=== PATIENT | male | born 1935 | race Caucasian/White ===

== ENCOUNTER 2018-07-14 17:41 | Inpatient (IN) ==
--- NOTE | 2018-07-14 20:49 | Emergency Department Note ---
Disposition Clinical Impression: Atrial fibrillation with RVR, ELENA (acute kidney injury) CHF exacerbation Qualifiers: Heart failure type: systolic Qualified Code(s): I50.23 - Acute on chronic systolic (congestive) heart failure Disposition: Admitted As Inpatient Condition: Undetermined Time of Disposition: 23:00 General Adult HPI - General Chief complaint: ED Recheck/Abnormal Lab/Rx Stated complaint: Abnormal Labs Time Seen by Provider: 07/14/18 20:20 - History of Present Illness Pain Scale: 0 - Related Data Home Medications Medication Instructions Recorded Confirmed Atorvastatin [Lipitor] 10 mg PO HS 03/19/18 03/19/18 Hydrochlorothiazide [Microzide] 12.5 mg PO DAILY 03/19/18 03/19/18 Lactobacillus Acidophilus 1 cap PO BID 03/19/18 03/19/18 [Acidophilus] Levothyroxine Sodium 75 mcg PO DAILY 03/19/18 03/19/18 Lisinopril [Zestril] 20 mg PO BID 03/19/18 03/19/18 Metformin HCl 1,000 mg PO WD 03/19/18 03/19/18 Metformin HCl 500 mg PO QAM 03/19/18 03/19/18 Oxybutynin [Ditropan] 2.5 mg PO BID 03/19/18 03/19/18 Pantoprazole Sodium [Protonix] 40 mg PO DAILY 03/19/18 03/19/18 Previous Rx's Medication Instructions Recorded Apixaban [Eliquis] 5 mg PO BID #60 tablet 03/20/18 Aspirin Enteric Coated [Aspirin EC] 81 mg PO DAILY #30 tablet.dr 03/20/18 Diltiazem CD (24hr) [Cardizem CD] 120 mg PO DAILY #30 cap.er.24h 03/20/18 Finasteride [Proscar] 5 mg PO DAILY #30 tablet 03/20/18 Allergies Allergy/AdvReac Type Severity Reaction Status Date / Time Sulfa (Sulfonamide AdvReac Rash Verified 07/14/18 17:42 Antibiotics) Past Medical History - Past Medical History Medical history: Reports: diabetes, thyroid disease Surgical history: Reports: orthopedic, other Psychiatric history: Reports: no psych history - Social History Smoking Status: Never smoker Smokeless Tobacco Status: No Alcohol use: Reports: none Drug use: Reports: none Course Vital Signs Temperature 97.7 F 07/14/18 17:42 Pulse Rate 79 07/14/18 17:42 Respiratory Rate 18 07/14/18 17:42 Blood Pressure 127/68 07/14/18 17:42 O2 Sat by Pulse Oximetry 96 07/14/18 17:42 Temperature 97.7 F 07/14/18 17:42 Pulse Rate 79 07/14/18 17:42 Respiratory Rate 18 07/14/18 17:42 Blood Pressure 127/68 07/14/18 17:42 O2 Sat by Pulse Oximetry 96 07/14/18 17:42 Oxygen Delivery Oxygen Delivery Room Air Medical Decision Making - Lab Data Result diagrams: 07/14/18 20:54 Lab Results 07/14/18 07/14/18 Range/Units 20:54 20:54 Sodium 136 (136-145) mEq/L Potassium 4.5 (3.5-5.1) mEq/L Chloride 102 (98-107) mEq/L Carbon Dioxide 23 (23-29) mEq/L BUN 30 H (8-23) mg/dL Creatinine 2.10 H (0.70-1.30) mg/dL Est GFR ( Amer) 37 L (> 60) Est GFR (Non-Af Amer) 31 L (> 60) BUN/Creatinine Ratio 14 (6-26) Glucose 137 H (70-105) mg/dL Calculated Osmolality 290 (280-300) Calcium 8.8 (8.6-10.3) mg/dL Troponin I < 0.03 (< 0.04) ng/mL B-Natriuretic Peptide 834 H (Less than 100) pg/mL Attestation Statement - Attestation Attestation: I examined this patient and my medical decision-making was reviewed with the Resident Physician. I agree with the documented findings, disposition and treatment plan as described except to the extent set forth below. Patient resisted ED with an abnormal lab. Patient states his primary care doctor's office called him and told him to come to the ED immediately. Patient does not know was abnormal. States he feels fine. On exam he is in no acute distress. Heart regular rate and rhythm lungs are clear abdomen soft. His awake alert oriented moving all extremities. Observed ambulating without difficulty. Plan. Labs reviewed. He did have a creatinine of 2. He has no symptoms of urinary obstruction. No pain. No dyspnea. He is having some swelling in his legs. CHF workup. We will discuss with nephrology. Nephrology was consulted. Patient admitted to medicine. EKG was reviewed with the resident. Paramjit sutton with RVR.
--- NOTE | 2018-07-14 20:54 | Emergency Department Note ---
Disposition Clinical Impression: Atrial fibrillation with RVR, ELENA (acute kidney injury) CHF exacerbation Qualifiers: Heart failure type: systolic Qualified Code(s): I50.23 - Acute on chronic systolic (congestive) heart failure Disposition: Admitted As Inpatient Condition: Undetermined Time of Disposition: 23:10 Recheck wound or abnormal lab - General Chief Complaint: ED Recheck/Abnormal Lab/Rx Stated Complaint: Abnormal Labs Time Seen by Provider: 07/14/18 20:20 Source: patient Mode of arrival: ambulatory Limitations: no limitations Nursing Notes Reviewed: Yes Vital Signs Reviewed: Yes - History of Present Illness HPI Narrative: 82-year-old male with history of atrial fibrillation, arrives to the emergency department with abnormal labs sent by PCP. It appears the patient was sent to the emergency department for elevated creatinine and low GFR. This appears new compared to previous lab work. However, we are unable to determine exactly why the patient was sent here as we received no phone call from PCP and the patient is unaware. He is apparently just instructed to come to the emergency dep artment to be evaluated. The patient denies any complaints other than a bilateral lower extremity swelling. He denies any chest pain, shortness of breath or orthopnea. The patient is feeding. This is in the room however he does seem to be mildly tangential on conversation and his family states that he is not been quite acting himself ever since he was diagnosed with atrial fibrillation. The patient otherwise is lucid and answering questions appropriately. He denies any other specific complaints at this time. - Related Data Home Medications Medication Instructions Recorded Confirmed Atorvastatin [Lipitor] 10 mg PO HS 03/19/18 03/19/18 Hydrochlorothiazide [Microzide] 12.5 mg PO DAILY 03/19/18 03/19/18 Lactobacillus Acidophilus 1 cap PO BID 03/19/18 03/19/18 [Acidophilus] Levothyroxine Sodium 75 mcg PO DAILY 03/19/18 03/19/18 Lisinopril [Zestril] 20 mg PO BID 03/19/18 03/19/18 Metformin HCl 1,000 mg PO WD 03/19/18 03/19/18 Metformin HCl 500 mg PO QAM 03/19/18 03/19/18 Oxybutynin [Ditropan] 2.5 mg PO BID 03/19/18 03/19/18 Pantoprazole Sodium [Protonix] 40 mg PO DAILY 03/19/18 03/19/18 Previous Rx's Medication Instructions Recorded Apixaban [Eliquis] 5 mg PO BID #60 tablet 03/20/18 Aspirin Enteric Coated [Aspirin EC] 81 mg PO DAILY #30 tablet. 03/20/18 Diltiazem CD (24hr) [Cardizem CD] 120 mg PO DAILY #30 cap.er.24h 03/20/18 Finasteride [Proscar] 5 mg PO DAILY #30 tablet 03/20/18 Allergies Allergy/AdvReac Type Severity Reaction Status Date / Time Sulfa (Sulfonamide AdvReac Rash Verified 07/14/18 17:42 Antibiotics) All systems ED: reviewed and negative except as stated. Constitutional: Denies: fever, chills, weakness ENT ED: Denies: dysphagia Cardiovascular: Reports: edema. Denies: chest pain Respiratory: Denies: dyspnea Gastrointestinal: Denies: abdominal pain Genitourinary: Denies: urgency, dysuria Musculoskeletal: Denies: back pain Integumentary: Denies: rash Neurological: Denies: headache Past Medical History - Past Medical History Attestation: Yes The following information was validated with the patient. Source: patient, old records reviewed Medical history: Reports: atrial fibrillation, diabetes, hypertension, thyroid disease Surgical history: Reports: orthopedic, other Psychiatric history: Reports: no psych history - Social History Smoking Status: Never smoker Smokeless Tobacco Status: No Alcohol use: Reports: none Drug use: Reports: none Physical Exam - General Limitations: no limitations General appearance: alert, in no apparent distress - Head Head exam: atraumatic, normocephalic, normal inspection - Eye Eye exam: Present: normal appearance, PERRL, EOMI - ENT ENT exam: normal exam, normal oropharynx, mucous membranes moist - Neck Neck exam: Present: normal inspection, full ROM, trachea midline - Chest Chest inspection: Present: normal inspection, symmetric chest wall rise - Respiratory Respiratory exam: Present: normal lung sounds bilaterally - Cardiovascular Cardiovascular exam: Present: regular rate, normal rhythm, normal heart sounds - Abdominal Exam Abdominal exam: Present: soft, Non-Tender. Absent: tenderness, distention, guarding, rebound, rigidity - Extremities Exam Extremities exam: Present: full ROM, normal capillary refill, pedal edema (2+ pitting B/L). Absent: tenderness - Neurological Exam Neurological exam: Present: alert, oriented X3 - Skin Skin exam: Present: warm, dry, intact, normal color Course - Reevaluation(s) Reevaluation #1: Patient's workup here in the ED demonstrates an acute kidney injury. This appears new on evaluation. The patient did have an elevated creatinine previously. We will page nephrology at this time. In addition the patient's chest x-ray demonstrates bilateral pleural effusions. His BNP is elevated 874. The patient's heart rate was initially in the 70s and then has elevated up to the 120s but on continued evaluation he is anywhere between the low 90s to 110. He is tearful in the room on evaluation. The patient is currently on anticoagulation, Eliquis. He is taking all his medications as prescribed. We will consult nephrology at this time for further workup and care with likely disposition being admission. Time: 21:42 - Consultations Consultation #1: I spoke with Dr. Perez who requested with U/A and Urine Na. Time: 22:47 Vital Signs Temperature 97.7 F 07/14/18 17:42 Pulse Rate 79 07/14/18 17:42 Respiratory Rate 18 07/14/18 17:42 Blood Pressure 127/68 07/14/18 17:42 O2 Sat by Pulse Oximetry 96 07/14/18 17:42 Temperature 97.7 F 07/14/18 17:42 Pulse Rate 79 07/14/18 17:42 Respiratory Rate 18 07/14/18 17:42 Blood Pressure 127/68 07/14/18 17:42 O2 Sat by Pulse Oximetry 96 07/14/18 17:42 Oxygen Delivery Oxygen Delivery Room Air Recheck wound or abnormal lab - MDM Narrative Medical decision making narrative: Patient will be admitted to the hospital at this time. The patient was given Cardizem by mouth. In addition the patient case was discussed with on-call nephrology. Accepted to the hospitalist by Dr. Mir. - Medical Records Medical records reviewed: Yes I reviewed the patient's medical records. - Lab Data Lab results reviewed: Yes I reviewed the patient's lab results. Result diagrams: 07/14/18 20:54 Lab Results 07/14/18 07/14/18 Range/Units 20:54 20:54 Sodium 136 (136-145) mEq/L Potassium 4.5 (3.5-5.1) mEq/L Chloride 102 (98-107) mEq/L Carbon Dioxide 23 (23-29) mEq/L BUN 30 H (8-23) mg/dL Creatinine 2.10 H (0.70-1.30) mg/dL Est GFR ( Amer) 37 L (> 60) Est GFR (Non-Af Amer) 31 L (> 60) BUN/Creatinine Ratio 14 (6-26) Glucose 137 H (70-105) mg/dL Calculated Osmolality 290 (280-300) Calcium 8.8 (8.6-10.3) mg/dL Troponin I < 0.03 (< 0.04) ng/mL B-Natriuretic Peptide 834 H (Less than 100) pg/mL - Radiology Data Radiology results reviewed: Yes I reviewed the patient's radiology results. Chest X-Ray 07/14/18 20:37 IMPRESSION: 1. Findings most compatible with small bilateral pleural effusions with associated atelectasis, right greater than left. D/ / Chinmay Bowens MD / Chinmay Bowens MD Interpreting Provider: Chinmay Bowens MD - EKG Data EKG attestation: Yes I reviewed and interpreted this EKG. EKG results narrative: Re: 129 beats for minute. Atrial fibrillation with RVR. No ST elevation or ST depression noted. No acute changes noted.
[2018-07-14 21:34] LABS: BUN/Creatinine Ratio 14 (6-26); Blood Urea Nitrogen 30 mg/dL (8-23); Calcium 8.8 mg/dL (8.6-10.3); Carbon Dioxide 23 mEq/L (23-29); Chloride 102 mEq/L (98-107); Glucose 137 mg/dL (70-105); Osmolality,Calculated 290 (280-300); Potassium 4.5 mEq/L (3.5-5.1); Sodium 136 mEq/L (136-145); eGFR For African Americans 37 (> 60); eGFR For Non-African Americans 31 (> 60)
[2018-07-14 21:35] LABS: Troponin I < 0.03 ng/mL (< 0.04)
[2018-07-14] MEDS ORDERED: Furosemide 40 MG/4 ML VIAL IVP ONE ×2 (23:19→23:28)
[2018-07-14] MEDS ORDERED: *HR* Dextrose 50 % in Water (Syg) 50 ML SYRINGE IVP PRN (23:20)
[2018-07-14] MEDS ORDERED: Dextrose Gel 15 GM/37.5 ML TUBE PO PRN ×2 (23:20)
--- NOTE | 2018-07-14 23:51 | Internal Med History&Physical ---
Date of Encounter: 07/14/18 Time of Encounter: 23:50 Internal Medicine - H&P: HPI Chief complaint: abnormal labs Admitted From: Home Plans for Post Hospital Care: Home History of present illness: Andrei Degroot is an 82 year old man with hypertension, hyperlipdeimia, diabetes and diagnosed with atrial fibrillation 4 months ago but subsequently developed hematuria while on apixaban. He presents to the ER today upon request of his PCP who found on an elevation in his creatinine on routine labs this morning. He reports feeling well and has no complaints. Repeat lab work confirmed his creatinine to be 2.1 up from 1.3 a few months ago. He was also found to have peripheral edema on physical exam and a newly developed pleural effusion on x-ray. Telemetry demonstrated afib with RVR. He is admitted for further care. Vitals: Reviewed General: Well-appearing male who appears younger than stated age sitting up in bed in no acute distress. Skin: Warm and supple. HEENT: Moist mucous membranes. No conjunctivae pallor. Neck: No lymphadenopathy. No JVD. No carotid bruits. No palpable thyroid. Chest: Normal thoracic expansion. Reduced breath sounds in both lung bases. No wheezing or rhonchi. Heart: Irregularly irregular. No rubs or murmurs. Abdomen: Non-distended, soft and non-tender to palpation. No peritoneal reaction. Extremities: 2-3+ pitting edema of both lower legs with the right leg circu mferentially larger than the left but nontender to palpation and no inflammatory signs present. Neurological: Awake, alert and oriented to person, place and time. No focal deficits. Psych: Affect appropriate. Assessment/Plan 1. Fluid overload: As evidenced by peripheral edema and pleural effusions. Suspect secondary to a functional heart failure state in the setting of atrial fibrillation. Stress test done recently showed no evidence of ischemia and his EF was grossly adequate. Will give him a dose of IVP furosemide tonight as a trial. I have taken note of his sulfa allergy. While there is a theoretical concern for a cross-reactive allergic reaction, it is minimal in clinical practice. Ethacrynic acid is not available here. All the same I will be present when infused and given only slowly with diphenhydramine/steroids ordered at bedside if he indeed is to develop a reaction. Will also get a Doppler of his right leg that is notably larger than the left to r/o DVT. 2. Atrial fibrillation: Will resume rate control agents and confirm anticoagulation status. 3. Acute on chronic kidney injury: Suspect secondary to poor effective volemia from functional heart failure and fluid sequestration. Will assess response to diuresis. It will be stopped if it worsens significantly or try albumin. 4. Diabetes: Place on insulin sliding scale as metformin should be on hold given his ELENA. Past Med Surg Social Fam HX - Past Medical History Medical history: atrial fibrillation, diabetes, hypertension, thyroid disease Psychiatric history: no psych history - Past Surgical History Surgical History: orthopedic, other - Social History Smoking Status: Never smoker Smokeless Tobacco Status: No Alcohol use: none Drug use: none - Family History Father Hx Family Cardiac Disorders: No Hx Family Cancer: Yes Mother Hx Family Cardiac Disorders: No Internal Medicine - H&P: Meds Atorvastatin [Lipitor] 10 mg PO HS 03/19/18 [History] Hydrochlorothiazide [Microzide] 12.5 mg PO DAILY 03/19/18 [History] Lactobacillus Acidophilus [Acidophilus] 1 cap PO BID 03/19/18 [History] Levothyroxine Sodium 75 mcg PO DAILY 03/19/18 [History] Lisinopril [Zestril] 20 mg PO BID 03/19/18 [History] Metformin HCl 1,000 mg PO WD 03/19/18 [History] Metformin HCl 500 mg PO QAM 03/19/18 [History] Oxybutynin [Ditropan] 2.5 mg PO BID 03/19/18 [History] Pantoprazole Sodium [Protonix] 40 mg PO DAILY 03/19/18 [History] Apixaban [Eliquis] 5 mg PO BID #60 tablet 03/20/18 [Rx] Aspirin Enteric Coated [Aspirin EC] 81 mg PO DAILY #30 tablet.dr 03/20/18 [Rx] Diltiazem CD (24hr) [Cardizem CD] 120 mg PO DAILY #30 cap.er.24h 03/20/18 [Rx] Finasteride [Proscar] 5 mg PO DAILY #30 tablet 03/20/18 [Rx] Allergy/AdvReac Type Severity Reaction Status Date / Time Sulfa (Sulfonamide AdvReac Rash Verified 07/14/18 17:42 Antibiotics) All Systems PM: A 10-system review of systems was performed and is negative for pertinent findings except as documented above in the HPI. - Constitutional Vitals: Temp Pulse Resp BP Pulse Ox 97.7 F 79 16 111/89 96 07/14/18 21:41 07/14/18 21:41 07/14/18 23:40 07/14/18 23:40 07/14/18 21:41 Exam: . Internal Med - H&P Results - Labs CBC & Chem 7: 07/14/18 20:54 Labs: BMP 07/14/18 20:54 Sodium 136 Potassium 4.5 Chloride 102 Carbon Dioxide 23 BUN 30 H Creatinine 2.10 H Glucose 137 H Calcium 8.8 Cardiac Enzymes 07/14/18 Range/Units 20:54 Troponin I < 0.03 (< 0.04) ng/mL - Impressions ITS Impressions Chest X-Ray 07/14/18 20:37 IMPRESSION: 1. Findings most compatible with small bilateral pleural effusions with associated atelectasis, right greater than left. D/ / Chinmay Bowens MD / Chinmay Bowens MD Interpreting Provider: Chinmay Bowens MD - Time Spent With Patient Total time spent is greater than 50% in coordination of care (as documented) at patient's floor/unit and/or counseling patient: Greater than 35 minutes
[2018-07-15 04:54] LABS: Bilirubin,Urine Negative (Negative); Blood,Urine Large (Negative); Clarity,Urine Cloudy (Clear); Color,Urine Yellow (Yellow); Glucose,Urine (UA) Normal (Normal); Ketones,Urine Negative (Negative); Leukocyte Esterase,Urine Large (Negative); Nitrite,Urine Negative (Negative); Protein,Urine 100 mg/dL (Neg-Trace); Specific Gravity,Urine 1.007 (1.010-1.025); Urobilinogen,Urine Normal (Normal)
[2018-07-15 04:56] LABS: Hyaline Casts,Urine None Seen per lpf (None-Few); Squamous Epithelial Cell,Urine None Seen per lpf (None-Few); WBC,Urine TNTC per hpf (0-3)
[2018-07-15 05:14] LABS: Bacteria,Urine Few per hpf (None-Few)
[2018-07-15] MEDS ORDERED: *HR* Metoprolol 5 MG/5 ML VIAL IVP ONE (05:42)
[2018-07-15 07:06] LABS: Basophils % 0.3 %; Eosinophils # 0.1 K/mcL (0.0-0.6); Eosinophils % 0.8 %; Hematocrit 30.8 % (37.5-50.1); Hemoglobin 9.8 g/dL (12.9-16.9); Immature Granulocytes % 0.5 % (0-4); Lymphocytes # 1.1 K/mcL (0.6-4.6); Lymphocytes % 14.2 %; Mean Corpuscular HGB Conc 31.8 g/dL (31.6-35.5); Mean Corpuscular Hemoglobin 28.7 pg (28.0-33.3); Mean Corpuscular Volume 90.3 fL (83.0-100.0); Mean Platelet Volume 11.3 fL (9.4-12.4); Monocytes # 0.5 K/mcL (0.0-1.3); Monocytes % 6.6 %; Neutrophils # 5.8 K/mcL (1.6-8.9); Platelet Count 213 K/mcL (140-400); Red Blood Count 3.41 M/mcL (4.19-5.50); Red Cell Distribution Width 15.2 % (11.5-14.5); Segmented Neutrophils % 77.6 %; White Blood Count 7.5 K/mcL (4.3-11.1)
[2018-07-15 07:15] LABS: Prothrombin Time 22.7 Seconds (9.4-12.1)
[2018-07-15 07:17] LABS: Activated Partial Thrombo Time 37.4 Seconds (26.0-36.0)
[2018-07-15 07:22] LABS: Heparin anti-factor XA UFH > 2.00 IU/mL (0.30-0.70)
[2018-07-15 07:25] LABS: Calcium 8.8 mg/dL (8.6-10.3); Potassium 4.3 mEq/L (3.5-5.1)
--- NOTE | 2018-07-15 07:55 | Internal Med Progress Note ---
Hospitalist Progress Note - Encounter Date of Encounter: 07/15/18 Time of Encounter: 07:00 - Subjective Interval History: No acute events overnight - Exam Vitals: Temp Pulse Resp BP Pulse Ox 98.0 F 99 16 112/72 96 07/15/18 07:46 07/15/18 07:46 07/15/18 07:46 07/15/18 07:46 07/15/18 07:46 Exam: General appearance: Present: A&O X 3, no acute distress Head exam: Present: normocephalic Respiratory exam: Present: CTAB. Absent: accessory muscle use, rales, rhonchi, wheezes Cardiovascular exam: Present: RRR, +S1, +S2. Absent: diastolic murmur, gallop, rubs, systolic murmur GI/Abdominal exam: Soft, NT, ND, +BS Extremities exam: bilateral edema Neurological exam: Present: alert, oriented X3, no focal deficits. Absent: altered - Assessment and Plan (1) CHF exacerbation Current Visit: Yes Status: Acute Assessment and Plan: Pt has acute worsening of chronic diastolic CHF On lasix BID. Monitor ins and outs. Cardiac diet Doppler of roght lower extremity to r/o DVT due to asymmetric lower extremity enlargement (2) Atrial fibrillation Current Visit: Yes Status: Acute Assessment and Plan: Continue diltiazem and eliquis (3) Diabetes Current Visit: Yes Status: Chronic Assessment and Plan: On insulin. Monitor fingersticks (4) ELENA (acute kidney injury) Current Visit: Yes Status: Acute Assessment and Plan: Monitor creatinine with diuresis (5) DVT prophylaxis Current Visit: Yes Status: Acute Assessment and Plan: On eliquis - Time Spent with Patient Total time spent is greater than 50% in coordination of care (as documented) at patient's floor/unit and/or counseling patient: Internal Medicine: Result - Labs CBC & Chem 7: 07/15/18 06:39 07/15/18 06:39 Labs: Short CBC 07/15/18 Range/Units 06:39 WBC 7.5 (4.3-11.1) K/mcL Hgb 9.8 L (12.9-16.9) g/dL Hct 30.8 L (37.5-50.1) % Plt Count 213 (140-400) K/mcL Neutrophils # 5.8 (1.6-8.9) K/mcL BMP 07/14/18 07/15/18 20:54 06:39 Sodium 136 139 Potassium 4.5 4.3 Chloride 102 102 Carbon Dioxide 23 23 BUN 30 H 30 H Creatinine 2.10 H 2.19 H Glucose 137 H 128 H Calcium 8.8 8.8 Cardiac Enzymes 07/14/18 Range/Units 20:54 Troponin I < 0.03 (< 0.04) ng/mL Urine 07/15/18 Range/Units 02:50 Urine Color Yellow (Yellow) Urine Clarity Cloudy A (Clear) Urine pH 6.0 (5.0-8.0) pH Units Ur Specific [place] 1.007 L (1.010-1.025) Urine Protein 100 H (Neg-Trace) mg/dL Urine Glucose (UA) Normal (Normal) mg/dL - ABG Interpretation ABG results: PT/INR, D-dimer PT 22.7 Seconds (9.4-12.1) H 07/15/18 06:39 - Impressions Impressions Chest X-Ray 07/14/18 20:37 IMPRESSION: 1. Findings most compatible with small bilateral pleural effusions with associated atelectasis, right greater than left. D/ / Chinmay Bowens MD / Chinmay Bowens MD Interpreting Provider: Chinmay Bowens MD Consult Discharge Plan - Plan Referrals: Mariaelena Canela, DO [Primary Care Provider] - (1) CHF exacerbation Qualifiers: Heart failure type: systolic Qualified Code(s): I50.23 - Acute on chronic systolic (congestive) heart failure (3) Diabetes Qualifiers: Diabetes mellitus type: type 2 Diabetes mellitus exterminator termite insulin use: without snf use Diabetes mellitus complication status: with unspecified complications
[2018-07-15] MEDS: Insulin LISPRO 300 UNITS/3 ML VIAL SQ SCH ×4 (08:21→23:31)
[2018-07-15] MEDS ORDERED: Furosemide 20 MG/2 ML VIAL IVP SCH (09:00)
[2018-07-15] MEDS ORDERED: Diltiazem CD (24hr) 120 MG CAPSULE PO SCH (09:00)
--- NOTE | 2018-07-15 13:27 | Electrocardiograph Report ---
[place] [id number] Test Date: 2018-07-14 Pat Name: Andrei Degroot Department: [id number] Room: 2A24 Gender: M System Architect: : [id number] Requested By: Gunnar Hopkins Order Number: [id number] Reading MD: Neptali Bullard Measurements Intervals [place] Rate: 129 P: ID: QRS: -25 QRSD: 85 T: QT: 368 QTc: 540 Interpretive Statements Atrial fibrillation Borderline left axis deviation Low voltage, extremity leads Anteroseptal infarct, old Borderline repolarization abnormality Electronically Signed On 07-15-2018 13:25:54 EDT by Neptali Bullard
[2018-07-15] MEDS ORDERED: *HR* Heparin 5,000 UNIT/ML VIAL SQ SCH (14:00)
[2018-07-15] MEDS ORDERED: 0.9 % Sodium Chloride 500 ML ONE (22:02)
[2018-07-15] MEDS: Furosemide 40 MG/4 ML VIAL IVP SCH (22:10)
[2018-07-15] MEDS: Apixaban 5 MG TABLET PO SCH (22:10)
--- NOTE | 2018-07-16 07:52 | Internal Med Progress Note ---
Hospitalist Progress Note - Encounter Date of Encounter: 07/16/18 Time of Encounter: 07:45 - Subjective Interval History: No acute events overnight - Exam Vitals: Temp Pulse Resp BP Pulse Ox 97.9 F 119 18 118/65 95 07/16/18 03:53 07/16/18 03:53 07/16/18 03:53 07/16/18 04:45 07/16/18 03:53 Exam: General appearance: Present: A&O X 3, no acute distress Head exam: Present: normocephalic Respiratory exam: Present: CTAB. Absent: accessory muscle use, rales, rhonchi, wheezes Cardiovascular exam: Present: RRR, +S1, +S2. Absent: diastolic murmur, gallop, rubs, systolic murmur GI/Abdominal exam: Soft, NT, ND, +BS Extremities exam: bilateral edema Neurological exam: Present: alert, oriented X3, no focal deficits. Absent: altered - Assessment and Plan (1) CHF exacerbation Current Visit: Yes Status: Acute Assessment and Plan: Pt has acute worsening of chronic diastolic CHF On lasix BID. Monitor ins and outs. Cardiac diet Doppler of roght lower extremity to r/o DVT due to asymmetric lower extremity enlargement (2) Atrial fibrillation Current Visit: Yes Status: Acute Assessment and Plan: Continue diltiazem and eliquis (3) Diabetes Current Visit: Yes Status: Chronic Assessment and Plan: On insulin. Monitor fingersticks (4) ELENA (acute kidney injury) Current Visit: Yes Status: Acute Assessment and Plan: Monitor creatinine with diuresis (5) DVT prophylaxis Current Visit: Yes Status: Acute Assessment and Plan: On eliquis - Time Spent with Patient Total time spent is greater than 50% in coordination of care (as documented) at patient's floor/unit and/or counseling patient: Internal Medicine: Result - Labs CBC & Chem 7: 07/16/18 09:39 07/16/18 09:39 - ABG Interpretation ABG results: PT/INR, D-dimer PT 22.7 Seconds (9.4-12.1) H 07/15/18 06:39 Consult Discharge Plan - Plan Referrals: Mariaelena Canela DO [Primary Care Provider] - (1) CHF exacerbation Qualifiers: Heart failure type: systolic Qualified Code(s): I50.23 - Acute on chronic sys tolic (congestive) heart failure (2) Atrial fibrillation Qualifiers: Qualified Code(s): I48.91 - Unspecified atrial fibrillation (3) Diabetes Qualifiers: Diabetes mellitus type: type 2 Diabetes mellitus fdc insulin use: without fdc use Diabetes mellitus complication status: with unspecified complications
[2018-07-16] MEDS: Apixaban 5 MG TABLET PO SCH ×2 (08:06→22:02)
[2018-07-16] MEDS: Mirabegron [Myrbetriq] 50 MG PO SCH (08:06)
[2018-07-16] MEDS: Finasteride 5 MG TABLET PO SCH (08:06)
[2018-07-16] MEDS: Furosemide 40 MG/4 ML VIAL IVP SCH ×2 (08:06→22:02)
[2018-07-16] MEDS: Insulin LISPRO 300 UNITS/3 ML VIAL SQ SCH ×4 (08:20→22:03)
[2018-07-16 10:22] LABS: Basophils % 0.3 %; Eosinophils # 0.1 K/mcL (0.0-0.6); Eosinophils % 0.8 %; Hematocrit 29.7 % (37.5-50.1); Hemoglobin 9.5 g/dL (12.9-16.9); Immature Granulocytes % 0.3 % (0-4); Lymphocytes % 13.3 %; Mean Corpuscular Hemoglobin 28.9 pg (28.0-33.3); Mean Corpuscular Volume 90.3 fL (83.0-100.0); Mean Platelet Volume 11.6 fL (9.4-12.4); Monocytes # 0.5 K/mcL (0.0-1.3); Monocytes % 6.8 %; Neutrophils # 5.8 K/mcL (1.6-8.9); Platelet Count 228 K/mcL (140-400); Red Blood Count 3.29 M/mcL (4.19-5.50); Red Cell Distribution Width 15.3 % (11.5-14.5); Segmented Neutrophils % 78.5 %; White Blood Count 7.4 K/mcL (4.3-11.1)
[2018-07-16 10:39] LABS: Calcium 8.4 mg/dL (8.6-10.3); Phosphorous 4.2 mg/dL (2.7-4.5); Potassium 4.1 mEq/L (3.5-5.1)
[2018-07-16] MEDS: Diltiazem CD (24hr) 180 MG CAPSULE PO SCH (10:54)
[2018-07-16] MEDS ORDERED: Albumin 25% 25gram/100mL 25 GM/100 ML IV.SOLN IVC SCH (14:30)
[2018-07-16] MEDS ORDERED: *HR* Metoprolol 5 MG/5 ML VIAL IVP ONE (14:39)
[2018-07-16] MEDS ORDERED: Albumin 25% 25gram/100mL 25 GM/100 ML IV.SOLN IVPB ONE (14:57)
[2018-07-16] MEDS ORDERED: Furosemide 20 MG/2 ML VIAL IVP ONE (17:03)
--- NOTE | 2018-07-17 07:36 | Internal Med Progress Note ---
Hospitalist Progress Note - Encounter Date of Encounter: 07/17/18 Time of Encounter: 07:30 - Subjective Interval History: No acute events overnight - Exam Vitals: Temp Pulse Resp BP Pulse Ox 97.8 F 113 17 98/56 97 07/17/18 03:38 07/17/18 03:38 07/17/18 03:38 07/17/18 03:38 07/17/18 03:38 Exam: General appearance: Present: A&O X 3, no acute distress Head exam: Present: normocephalic Respiratory exam: Present: CTAB. Absent: accessory muscle use, rales, rhonchi, wheezes Cardiovascular exam: Present: RRR, +S1, +S2. Absent: diastolic murmur, gallop, rubs, systolic murmur GI/Abdominal exam: Soft, NT, ND, +BS Extremities exam: bilateral edema Neurological exam: Present: alert, oriented X3, no focal deficits. Absent: altered - Assessment and Plan (1) CHF exacerbation Current Visit: Yes Status: Acute Assessment and Plan: Pt has acute worsening of chronic diastolic CHF On lasix BID. Monitor ins and outs. Cardiac diet Doppler of right lower extremity to r/o DVT was negative (2) ELENA (acute kidney injury) Current Visit: Yes Status: Acute Assessment and Plan: Monitor creatinine with diuresis. Creatinine trended up despite giving albumin Patient still has some edema. renal consulted and appreciate recs (3) Atrial fibrillation Current Visit: Yes Status: Acute Assessment and Plan: Continue diltiazem and eliquis (4) Diabetes Current Visit: Yes Status: Chronic Assessment and Plan: On insulin. Monitor fingersticks (5) DVT prophylaxis Current Visit: Yes Status: Acute Assessment and Plan: On eliquis - Time Spent with Patient Total time spent is greater than 50% in coordination of care (as documented) at patient's floor/unit and/or counseling patient: Internal Medicine: Result - Labs CBC & Chem 7: 07/17/18 09:26 07/17/18 09:26 Labs: Short CBC 07/16/18 Range/Units 09:39 WBC 7.4 (4.3-11.1) K/mcL Hgb 9.5 L (12.9-16.9) g/dL Hct 29.7 L (37.5-50.1) % Plt Count 228 (140-400) K/mcL Neutrophils # 5.8 (1.6-8.9) K/mcL BMP 07/16/18 09:39 Sodium 136 Potassium 4.1 Chloride 101 Carbon Dioxide 24 BUN 34 H Creatinine 2.33 H Glucose 160 H Calcium 8.4 L - ABG Interpretation ABG results: PT/INR, D-dimer PT 22.7 Seconds (9.4-12.1) H 07/15/18 06:39 Consult Discharge Plan - Plan Referrals: Mariaelena Canela DO [Primary Care Provider] - (1) CHF exacerbation Qualifiers: Heart failure type: systolic Qualified Code(s): I50.23 - Acute on chronic systolic (congestive) heart failure (3) Atrial fibrillation Qualifiers: Qualified Code(s): I48.91 - Unspecified atrial fibrillation (4) Diabetes Qualifiers: Diabetes mellitus type: type 2 Diabetes mellitus correction insulin use: without correction use Diabetes mellitus complication status: with unspecified complications
[2018-07-17] MEDS ORDERED: D5% in Water 1,000 ML IVC PRN (07:50)
[2018-07-17] MEDS: Diltiazem CD (24hr) 180 MG CAPSULE PO SCH (08:06)
[2018-07-17] MEDS: Insulin LISPRO 300 UNITS/3 ML VIAL SQ SCH ×4 (08:07→20:45)
[2018-07-17] MEDS: Finasteride 5 MG TABLET PO SCH (08:08)
[2018-07-17] MEDS: Apixaban 5 MG TABLET PO SCH ×2 (09:36→20:40)
[2018-07-17] MEDS: Mirabegron [Myrbetriq] 50 MG PO SCH (09:41)
[2018-07-17 09:50] LABS: White Blood Count 8.8 K/mcL (4.3-11.1)
[2018-07-17 09:51] LABS: Basophils % 0.5 %; Eosinophils # 0.1 K/mcL (0.0-0.6); Eosinophils % 0.6 %; Hematocrit 33.4 % (37.5-50.1); Hemoglobin 10.9 g/dL (12.9-16.9); Immature Granulocytes % 0.3 % (0-4); Lymphocytes # 1.4 K/mcL (0.6-4.6); Lymphocytes % 15.9 %; Mean Corpuscular HGB Conc 32.6 g/dL (31.6-35.5); Mean Corpuscular Hemoglobin 29.5 pg (28.0-33.3); Mean Corpuscular Volume 90.3 fL (83.0-100.0); Mean Platelet Volume 11.4 fL (9.4-12.4); Monocytes # 0.6 K/mcL (0.0-1.3); Neutrophils # 6.7 K/mcL (1.6-8.9); Platelet Count 269 K/mcL (140-400); Red Cell Distribution Width 15.3 % (11.5-14.5); Segmented Neutrophils % 75.7 %
[2018-07-17 10:08] LABS: Calcium 8.7 mg/dL (8.6-10.3); Magnesium 1.1 mg/dL (1.6-2.6); Phosphorous 5.3 mg/dL (2.7-4.5); Potassium 4.4 mEq/L (3.5-5.1)
--- NOTE | 2018-07-17 16:16 | Nephrology Consult Note ---
Date of Encounter: 07/17/18 Time of Encounter: 16:00 Assessment and Plan (1) ELENA (acute kidney injury) Current Visit: Yes Status: Acute Elevated SCr in the setting of CHF and diuretics Agree with holding diuretics for now Agree with albumin bolus given yesterday Agree with holding lisinopril for now Po fluids for now Will check CPK and uric acid levels Will also check urine studies for protein and urea, eosinophils History of Present Illness - Reason for Consult Consult date: 07/17/18 Requesting physician: Prem Borges - History of Present Illness 82 y o male with PMH of Past Med Surg Social Fam HX - Past Medical History Medical history: atrial fibrillation, diabetes, hypertension, thyroid disease Psychiatric history: no psych history - Past Surgical History Surgical History: orthopedic, other - Social History Smoking Status: Never smoker Smokeless Tobacco Status: No Alcohol use: none Drug use: none - Family History Father History Unknown: Yes Hx Family Cardiac Disorders: No Hx Family Cancer: Yes Mother History Unknown: Yes Hx Family Cardiac Disorders: No Medications and Allergies Atorvastatin [Lipitor] 10 mg PO HS 03/19/18 [History] Levothyroxine Sodium 75 mcg PO QAM 03/19/18 [History] Lisinopril [Zestril] 20 mg PO BID 03/19/18 [History] Oxybutynin [Ditropan] 5 mg PO QPM 03/19/18 [History] Pantoprazole Sodium [Protonix] 40 mg PO DAILY 03/19/18 [History] Apixaban [Eliquis] 5 mg PO BID #60 tablet 03/20/18 [Rx] Finasteride [Proscar] 5 mg PO DAILY #30 tablet 03/20/18 [Rx] Diltiazem HCl [Diltiazem 24Hr Cd] 180 mg PO DAILY 07/15/18 [History] Mirabegron [Myrbetriq] 50 mg PO DAILY 07/15/18 [History] Ferrous Gluconate 324 mg PO DAILY 07/17/18 [History] Multivitamin [One Daily Multivitamin] 1 tab PO DAILY 07/17/18 [History] Allergy/AdvReac Type Severity Reaction Status Date / Time Sulfa (Sulfonamide AdvReac Rash Verified 07/16/18 18:22 Antibiotics) Exam - Vital Signs Vital signs: Initial Vital Signs Temp Pulse Resp BP Pulse Ox 97.7 F 79 18 127/68 96 07/14/18 17:42 07/14/18 17:42 07/14/18 17:42 07/14/18 17:42 07/14/18 17:42 Vital Signs - Last 8 Hours Temp Pulse Resp BP Pulse Ox 07/17/18 11:18 97.6 F 92 16 110/76 93 Intake and Output 07/17/18 07/17/18 07/17/18 07:59 15:59 23:59 Intake Total 480 / 480 Balance 480 / 480 Intake: Oral 480 / 480 Other: Blood Glucose* 124 130 Results - Lab Results 07/17/18 09:26 07/17/18 09:26 Most recent lab results 07/17/18 09:26 Calcium 8.7 Phosphorus 5.3 H Magnesium 1.1 L Consult Discharge Plan - Plan Referrals: Mariaelena Canela DO [Primary Care Provider] -
[2018-07-17 16:39] LABS: Uric Acid 10.8 mg/dL (2.3-7.6)
[2018-07-18 00:15] LABS: Protein/Creatinine Ratio,Urine 0.73 mg/mg (0.00-0.20)
[2018-07-18 06:44] LABS: Basophils % 0.4 %; Eosinophils # 0.1 K/mcL (0.0-0.6); Eosinophils % 0.7 %; Hematocrit 34.8 % (37.5-50.1); Hemoglobin 11.2 g/dL (12.9-16.9); Immature Granulocytes % 0.5 % (0-4); Lymphocytes # 1.8 K/mcL (0.6-4.6); Lymphocytes % 18.3 %; Mean Corpuscular HGB Conc 32.2 g/dL (31.6-35.5); Mean Corpuscular Hemoglobin 29.2 pg (28.0-33.3); Mean Corpuscular Volume 90.6 fL (83.0-100.0); Mean Platelet Volume 11.9 fL (9.4-12.4); Monocytes # 0.8 K/mcL (0.0-1.3); Monocytes % 7.8 %; Platelet Count 285 K/mcL (140-400); Red Blood Count 3.84 M/mcL (4.19-5.50); Red Cell Distribution Width 15.5 % (11.5-14.5); Segmented Neutrophils % 72.3 %; White Blood Count 9.6 K/mcL (4.3-11.1)
[2018-07-18 07:07] LABS: Calcium 8.6 mg/dL (8.6-10.3); Magnesium 1.2 mg/dL (1.6-2.6); Phosphorous 5.3 mg/dL (2.7-4.5); Potassium 4.8 mEq/L (3.5-5.1)
[2018-07-18 07:57] VITALS: BP 111/64
[2018-07-18] MEDS: Insulin LISPRO 300 UNITS/3 ML VIAL SQ SCH (08:15)
[2018-07-18] MEDS: Finasteride 5 MG TABLET PO SCH (08:16)
[2018-07-18] MEDS: Apixaban 5 MG TABLET PO SCH (08:16)
[2018-07-18] MEDS: Diltiazem CD (24hr) 180 MG CAPSULE PO SCH (08:16)
[2018-07-18] MEDS: Mirabegron [Myrbetriq] 50 MG PO SCH (08:17)
--- NOTE | 2018-07-18 08:18 | Discharge Summary ---
Date of Encounter: 07/18/18 Time of Encounter: 08:00 - Discharge Diagnosis (1) CHF exacerbation Priority: Primary Status: Acute Assessment and Plan: 82 year old man with hypertension, hyperlipdeimia, diabetes and diagnosed with atrial fibrillation 4 months ago but subsequently developed hematuria while on apixaban. He presents to the ER today upon request of his PCP who found on an elevation in his creatinine on routine labs this morning. He reports feeling well and has no complaints. Repeat lab work confirmed his creatinine to be 2.1 up from 1.3 a few months ago. He was also found to have peripheral edema on physical exam and a newly developed pleural effusion on x-ray. Telemetry demonstrated afib with RVR. He is admitted for further care. He was assessed with acute worsening of chronic diastolic CHF and ELENA on CKD stage 2. He was diuresed with adequate urine output but had a mild worsening in his creatinine. He was seen by renal and his lasix was held for one day. His creatinine stopped trending up and he was instructed to skip another day of lasix dosing and obtain labs later this week. metoprolol was added to his regimen for uncontrolled afib. He was discharged in a stable condition. 35 minutes was spent discharging this patient Qualifiers: Heart failure type: systolic Qualified Code(s): I50.23 - Acute on chronic systolic (congestive) heart failure (2) ELENA (acute kidney injury) Priority: Primary Status: Acute (3) Atrial fibrillation Priority: Primary Status: Acute Qualifiers: Qualified Code(s): I48.91 - Unspecified atrial fibrillation (4) DVT prophylaxis Priority: Primary Status: Acute Hospital course: Mr. Degroot is a 82 year old male - Time Spent with Patient Total time spent providing and/or coordinating discharge services: - Discharge Medications Prescriptions: New Metoprolol [Lopressor] 50 mg PO BID #60 tablet Furosemide [Lasix] 40 mg PO DAILY 30 Days #30 tab Continued Atorvastatin [Lipitor] 10 mg PO HS Levothyroxine Sodium 75 mcg PO QAM Lisinopril [Zestril] 20 mg PO BID Oxybutynin [Ditropan] 5 mg PO QPM Pantoprazole Sodium [Protonix] 40 mg PO DAILY Apixaban [Eliquis] 5 mg PO BID #60 tablet Finasteride [Proscar] 5 mg PO DAILY #30 tablet Mirabegron [Myrbetriq] 50 mg PO DAILY Diltiazem HCl [Diltiazem 24Hr Cd] 180 mg PO DAILY Ferrous Gluconate 324 mg PO DAILY Multivitamin [One Daily Multivitamin] 1 tab PO DAILY Home Medications: Atorvastatin [Lipitor] 10 mg PO HS 03/19/18 [History] Levothyroxine Sodium 75 mcg PO QAM 03/19/18 [History] Lisinopril [Zestril] 20 mg PO BID 03/19/18 [History] Oxybutynin [Ditropan] 5 mg PO QPM 03/19/18 [History] Pantoprazole Sodium [Protonix] 40 mg PO DAILY 03/19/18 [History] Apixaban [Eliquis] 5 mg PO BID #60 tablet 03/20/18 [Rx] Finasteride [Proscar] 5 mg PO DAILY #30 tablet 03/20/18 [Rx] Diltiazem HCl [Diltiazem 24Hr Cd] 180 mg PO DAILY 07/15/18 [History] Mirabegron [Myrbetriq] 50 mg PO DAILY 07/15/18 [History] Ferrous Gluconate 324 mg PO DAILY 07/17/18 [History] Multivitamin [One Daily Multivitamin] 1 tab PO DAILY 07/17/18 [History] Furosemide [Lasix] 40 mg PO DAILY 30 Days #30 tab 07/18/18 [Rx] Metoprolol [Lopressor] 50 mg PO BID #60 tablet 07/18/18 [Rx] Allergies/Adverse Reactions: Allergy/AdvReac Type Severity Reaction Status Date / Time Sulfa (Sulfonamide AdvReac Rash Verified 07/16/18 18:22 Antibiotics) Date of admission: 07/16/18 14:25 Primary care physician: Mariaelena Canela DO Consults: 07/15/18 00:32 Consult to Nutrition [CONS] Routine Comment: Consulting Provider: NUTRITION Reason for Dietary Consult: MST Score 07/16/18 14:23 Consult to Nephrology [CONS] Routine Consulting Provider: Kidney Juany/KEYUR/VALENTIN/TIFFANIE Reason for Consult: ELENA on CHF Call Completed: Yes 07/17/18 14:22 Consult to Nurse Navigator [CONS] Routine Comment: chf - Constitutional Vitals: Temp Pulse Resp BP Pulse Ox 97.8 F 84 17 111/64 97 07/18/18 07:56 07/18/18 07:56 07/18/18 07:56 07/18/18 07:56 07/18/18 07:56 Exam: General appearance: Present: A&O X 3, no acute distress Head exam: Present: normocephalic Respiratory exam: Present: CTAB. Absent: accessory muscle use, rales, rhonchi, wheezes Cardiovascular exam: Present: RRR, +S1, +S2. Absent: diastolic murmur, gallop, rubs, systolic murmur GI/Abdominal exam: Soft, NT, ND, +BS Extremities exam: bilateral edema improved Neurological exam: Present: alert, oriented X3, no focal deficits. Absent: altered - Patient Status Disposition: Home, Self-Care Condition: Good - Ambulatory Orders Ambulatory Orders: Basic Metabolic Panel [CHEM] Time Frame: 3 Days, Facility: [facility], Location: [facility] - Discharge Instructions Instructions: Metoprolol (By mouth), Furosemide (By mouth), Heart Failure (DC), Atrial Fibrillation (DC) Follow Up With: Mariaelena Canela DO [Primary Care Provider] - 07/26/18 1:00 pm (Please follow up with Bev. Currie)
== END 2018-07-18 11:49 | disposition home or self-care (01) | DRG 291 ==
LOC: EMEROOARM 17:41 → 2ANU 17:41
PROVIDERS: ADMIT Internal Medicine; ATTEND Internal Medicine

== ENCOUNTER 2018-09-02 16:43 | Inpatient (IN) ==
[2018-09-02 17:24] LABS: Basophils % 0.2 %; Eosinophils % 0.4 %; Hematocrit 37.9 % (37.5-50.1); Immature Granulocytes % 0.4 % (0-4); Lymphocytes # 1.2 K/mcL (0.6-4.6); Mean Corpuscular HGB Conc 31.7 g/dL (31.6-35.5); Mean Corpuscular Hemoglobin 29.1 pg (28.0-33.3); Mean Corpuscular Volume 91.8 fL (83.0-100.0); Mean Platelet Volume 11.2 fL (9.4-12.4); Monocytes # 0.7 K/mcL (0.0-1.3); Monocytes % 6.6 %; Neutrophils # 8.2 K/mcL (1.6-8.9); Platelet Count 306 K/mcL (140-400); Red Blood Count 4.13 M/mcL (4.19-5.50); Red Cell Distribution Width 17.1 % (11.5-14.5); Segmented Neutrophils % 80.4 %; White Blood Count 10.2 K/mcL (4.3-11.1)
[2018-09-02] MEDS ORDERED: Isovue-370 500 ML BOTTLE IVP ONE (17:27)
[2018-09-02 17:32] LABS: BUN/Creatinine Ratio 15 (6-26); Blood Urea Nitrogen 63 mg/dL (8-23); Calcium 10.2 mg/dL (8.6-10.3); Carbon Dioxide 21 mEq/L (23-29); Chloride 96 mEq/L (98-107); Glucose 131 mg/dL (70-105); Osmolality,Calculated 296 (280-300); Potassium 4.7 mEq/L (3.5-5.1); Sodium 133 mEq/L (136-145); eGFR For African Americans 17 (> 60); eGFR For Non-African Americans 14 (> 60)
[2018-09-02 17:33] LABS: Troponin I < 0.03 ng/mL (< 0.04)
[2018-09-02 17:46] LABS: Thyroid Stimulating Hormone 5.942 mcIU/mL (0.340-5.600)
[2018-09-02] MEDS ORDERED: *HR* HYDROmorphone (PF) 1 MG/ML SYRINGE IVP ONE (18:48)
[2018-09-02 18:54] LABS: Bilirubin,Urine Negative (Negative); Blood,Urine Large (Negative); Clarity,Urine Cloudy (Clear); Color,Urine Red (Yellow); Glucose,Urine (UA) Normal (Normal); Ketones,Urine Negative (Negative); Leukocyte Esterase,Urine Large (Negative); Nitrite,Urine Negative (Negative); Protein,Urine 100 mg/dL (Neg-Trace); Specific Gravity,Urine 1.011 (1.010-1.025); Urobilinogen,Urine Normal (Normal)
[2018-09-02] MEDS ORDERED: cefTRIAXone 1,000 MG in Water for inj. (sterile) 10 ML IVP ONE (18:56)
[2018-09-02] MEDS ORDERED: *HR* Metoprolol 5 MG/5 ML VIAL IVP ONE (19:52)
[2018-09-02] MEDS ORDERED: Acetaminophen 325 MG TABLET PO PRN (20:35)
[2018-09-02] MEDS ORDERED: Naloxone 0.4 MG/ML INJ IVP PRN (20:35)
[2018-09-02] MEDS ORDERED: Ondansetron 4 MG/2 ML VIAL IVP PRN (20:35)
[2018-09-02] MEDS ORDERED: Apixaban 5 MG TABLET PO SCH (21:00)
[2018-09-02] MEDS: 0.9 % Sodium Chloride 1,000 ML IVC SCH (21:45)
[2018-09-03] MEDS: 0.9 % Sodium Chloride 1,000 ML IVC SCH (05:15)
[2018-09-03] MEDS: cefTRIAXone 2,000 MG in Water for inj. (sterile) 20 ML IVPB SCH (09:16)
[2018-09-03] MEDS: DilTIAZem CD (24hr) 180 MG CAP.ER.24H PO SCH (09:16)
[2018-09-03] MEDS: Mirabegron [Myrbetriq] 50 MG PO SCH ×2 (09:17→16:33)
[2018-09-03 10:22] LABS: Basophils % 0.1 %; Eosinophils # 0.1 K/mcL (0.0-0.6); Eosinophils % 0.8 %; Hematocrit 35.1 % (37.5-50.1); Hemoglobin 11.1 g/dL (12.9-16.9); Immature Granulocytes % 0.4 % (0-4); Lymphocytes % 12.1 %; Mean Corpuscular HGB Conc 31.6 g/dL (31.6-35.5); Mean Corpuscular Hemoglobin 29.5 pg (28.0-33.3); Mean Corpuscular Volume 93.4 fL (83.0-100.0); Mean Platelet Volume 10.9 fL (9.4-12.4); Monocytes # 0.6 K/mcL (0.0-1.3); Monocytes % 7.4 %; Neutrophils # 6.2 K/mcL (1.6-8.9); Platelet Count 247 K/mcL (140-400); Red Blood Count 3.76 M/mcL (4.19-5.50); Red Cell Distribution Width 17.1 % (11.5-14.5); Segmented Neutrophils % 79.2 %; White Blood Count 7.8 K/mcL (4.3-11.1)
[2018-09-03 10:30] LABS: INR 2.1; Prothrombin Time 23.7 Seconds (9.4-12.1)
[2018-09-03 10:32] LABS: Activated Partial Thrombo Time 36.9 Seconds (26.0-36.0)
[2018-09-03 10:42] LABS: Albumin 3.3 g/dL (3.5-5.7); Albumin/Globulin Ratio 1.1 (1.1-2.2); Bilirubin,Total 0.8 mg/dL (0.3-1.0); Calcium 9.2 mg/dL (8.6-10.3); Magnesium 1.9 mg/dL (1.6-2.6); Phosphorous 4.8 mg/dL (2.7-4.5); Potassium 4.4 mEq/L (3.5-5.1); Total Protein 6.3 g/dL (6.4-8.9)
[2018-09-03 10:56] LABS: Chol/HDL Ratio 3.6 (0-4.9)
[2018-09-03] MEDS: Apixaban 5 MG TABLET PO SCH (20:51)
[2018-09-03] MEDS ORDERED: Melatonin 3 MG TABLET PO PRN (21:16)
[2018-09-04 06:07] LABS: Hematocrit 34.2 % (37.5-50.1); Hemoglobin 10.8 g/dL (12.9-16.9); Mean Corpuscular HGB Conc 31.6 g/dL (31.6-35.5); Mean Corpuscular Hemoglobin 30.1 pg (28.0-33.3); Mean Corpuscular Volume 95.3 fL (83.0-100.0); Mean Platelet Volume 11.3 fL (9.4-12.4); Platelet Count 247 K/mcL (140-400); Red Blood Count 3.59 M/mcL (4.19-5.50); Red Cell Distribution Width 16.9 % (11.5-14.5); White Blood Count 8.3 K/mcL (4.3-11.1)
[2018-09-04 06:23] LABS: Albumin 3.2 g/dL (3.5-5.7); Albumin/Globulin Ratio 1.1 (1.1-2.2); Bilirubin,Total 0.6 mg/dL (0.3-1.0); Calcium 9.3 mg/dL (8.6-10.3); Globulin 2.9 g/dL (2.4-3.5); Magnesium 1.8 mg/dL (1.6-2.6); Phosphorous 3.8 mg/dL (2.7-4.5); Potassium 4.3 mEq/L (3.5-5.1); Total Protein 6.1 g/dL (6.4-8.9)
[2018-09-04] MEDS: Apixaban 5 MG TABLET PO SCH ×2 (08:31→20:19)
[2018-09-04] MEDS: cefTRIAXone 2,000 MG in Water for inj. (sterile) 20 ML IVPB SCH (08:32)
[2018-09-04] MEDS: DilTIAZem CD (24hr) 180 MG CAP.ER.24H PO SCH (08:32)
[2018-09-04] MEDS: Mirabegron [Myrbetriq] 50 MG PO SCH ×2 (08:43→10:54)
[2018-09-04] MEDS ORDERED: Perflutren Lipid Microsphere 1.3 ML in 0.9 % Sodium Chloride 8.7 ML IVP ONE (17:58)
[2018-09-05] MEDS: DilTIAZem CD (24hr) 180 MG CAP.ER.24H PO SCH (08:25)
[2018-09-05] MEDS: Apixaban 5 MG TABLET PO SCH ×2 (08:25→21:22)
[2018-09-05] MEDS: Mirabegron [Myrbetriq] 50 MG PO SCH (08:26)
[2018-09-05 09:15] LABS: Hematocrit 37.4 % (37.5-50.1); Hemoglobin 11.6 g/dL (12.9-16.9); Mean Corpuscular Hemoglobin 29.7 pg (28.0-33.3); Mean Corpuscular Volume 95.7 fL (83.0-100.0); Mean Platelet Volume 11.1 fL (9.4-12.4); Platelet Count 281 K/mcL (140-400); Red Blood Count 3.91 M/mcL (4.19-5.50); Red Cell Distribution Width 17.1 % (11.5-14.5); White Blood Count 7.4 K/mcL (4.3-11.1)
[2018-09-05 09:36] LABS: Albumin 3.4 g/dL (3.5-5.7); Albumin/Globulin Ratio 1.1 (1.1-2.2); Bilirubin,Total 0.6 mg/dL (0.3-1.0); Calcium 9.5 mg/dL (8.6-10.3); Globulin 3.2 g/dL (2.4-3.5); Magnesium 1.7 mg/dL (1.6-2.6); Potassium 4.3 mEq/L (3.5-5.1); Total Protein 6.6 g/dL (6.4-8.9)
[2018-09-05] MEDS ORDERED: DilTIAZem SR (12hr) 60 MG CAP.ER.12H PO SCH (10:15)
[2018-09-05] MEDS ORDERED: Amiodarone Premix 360 MG/200 ML BAG IVC ONE ×2 (15:07→19:54)
[2018-09-05] MEDS ORDERED: Amiodarone Premix 360 MG/200 ML BAG IVC SCH (15:15)
[2018-09-05] MEDS ORDERED: Ondansetron 4 MG/2 ML VIAL IVP PRN (19:54)
[2018-09-05] MEDS ORDERED: Acetaminophen 325 MG TABLET PO PRN (19:54)
[2018-09-05] MEDS ORDERED: Naloxone 0.4 MG/ML INJ IVP PRN (19:54)
[2018-09-05] MEDS ORDERED: Melatonin 3 MG TABLET PO PRN (19:54)
[2018-09-06] MEDS: Amiodarone Premix 360 MG/200 ML BAG IVC SCH ×2 (02:37→14:58)
[2018-09-06 05:10] LABS: Hematocrit 33.9 % (37.5-50.1); Hemoglobin 10.6 g/dL (12.9-16.9); Mean Corpuscular HGB Conc 31.3 g/dL (31.6-35.5); Mean Corpuscular Hemoglobin 29.7 pg (28.0-33.3); Mean Platelet Volume 11.1 fL (9.4-12.4); Platelet Count 252 K/mcL (140-400); Red Blood Count 3.57 M/mcL (4.19-5.50); White Blood Count 7.1 K/mcL (4.3-11.1)
[2018-09-06] MEDS: Metoprolol XL (24 HR) Succ 25 MG TAB.ER.24H PO SCH ×2 (08:46→09:02)
[2018-09-06] MEDS: Apixaban 5 MG TABLET PO SCH (08:46)
[2018-09-06] MEDS: Mirabegron [Myrbetriq] 50 MG PO SCH (08:52)
[2018-09-06] MEDS ORDERED: Metoprolol XL (24 HR) Succ 25 MG TAB.ER.24H PO SCH (09:00)
[2018-09-06] MEDS ORDERED: DilTIAZem CD (24hr) 240 MG CAP.ER.24H PO SCH (09:00)
[2018-09-06 09:24] LABS: Albumin 3.3 g/dL (3.5-5.7); Albumin/Globulin Ratio 1.1 (1.1-2.2); Bilirubin,Direct 0.1 mg/dL (0.0-0.2); Bilirubin,Indirect 0.3 mg/dL (0.0-1.2); Bilirubin,Total 0.4 mg/dL (0.3-1.0); Globulin 2.9 g/dL (2.4-3.5); Total Protein 6.2 g/dL (6.4-8.9)
[2018-09-06 15:58] LABS: Hematocrit 33.6 % (37.5-50.1); Hemoglobin 10.7 g/dL (12.9-16.9); Mean Corpuscular HGB Conc 31.8 g/dL (31.6-35.5); Mean Corpuscular Hemoglobin 30.1 pg (28.0-33.3); Mean Corpuscular Volume 94.6 fL (83.0-100.0); Mean Platelet Volume 10.8 fL (9.4-12.4); Platelet Count 250 K/mcL (140-400); Red Blood Count 3.55 M/mcL (4.19-5.50); White Blood Count 6.9 K/mcL (4.3-11.1)
[2018-09-06 16:09] LABS: INR 1.5; Prothrombin Time 17.3 Seconds (9.4-12.1)
[2018-09-06] MEDS ORDERED: *HR* Heparin 5,000 UNIT/ML VIAL IVP ONE (21:00)
[2018-09-06] MEDS ORDERED: *HR* Heparin 5,000 UNIT/ML VIAL IVP PRN ×2 (21:00)
[2018-09-06] MEDS: Heparin 25,000 UNIT/250 ML D5W 25,000 UNIT/250 ML IV.SOLN IVC SCH (21:46)
[2018-09-07] MEDS: Amiodarone Premix 360 MG/200 ML BAG IVC SCH (01:15)
[2018-09-07 04:29] LABS: Basophils % 0.3 %; Eosinophils # 0.3 K/mcL (0.0-0.6); Eosinophils % 3.5 %; Hematocrit 33.6 % (37.5-50.1); Hemoglobin 10.7 g/dL (12.9-16.9); Immature Granulocytes % 0.4 % (0-4); Lymphocytes # 1.3 K/mcL (0.6-4.6); Lymphocytes % 17.8 %; Mean Corpuscular HGB Conc 31.8 g/dL (31.6-35.5); Mean Corpuscular Hemoglobin 29.5 pg (28.0-33.3); Mean Corpuscular Volume 92.6 fL (83.0-100.0); Mean Platelet Volume 11.2 fL (9.4-12.4); Monocytes # 0.5 K/mcL (0.0-1.3); Monocytes % 6.7 %; Neutrophils # 5.1 K/mcL (1.6-8.9); Platelet Count 247 K/mcL (140-400); Red Blood Count 3.63 M/mcL (4.19-5.50); Red Cell Distribution Width 16.9 % (11.5-14.5); Segmented Neutrophils % 71.3 %; White Blood Count 7.2 K/mcL (4.3-11.1)
[2018-09-07 04:48] LABS: Calcium 8.9 mg/dL (8.6-10.3); Potassium 3.9 mEq/L (3.5-5.1)
[2018-09-07] MEDS: Heparin 25,000 UNIT/250 ML D5W 25,000 UNIT/250 ML IV.SOLN IVC SCH (05:55)
[2018-09-07] MEDS: Mirabegron [Myrbetriq] 50 MG PO SCH (08:13)
[2018-09-07] MEDS: 0.9 % Sodium Chloride 1,000 ML IVC SCH (13:33)
[2018-09-07] MEDS ORDERED: Heparin 1,000 UNITS/500 mL 500 ML ONE (14:17)
[2018-09-07] MEDS ORDERED: Verapamil 5 MG/2 ML VIAL ONE (14:17)
[2018-09-07] MEDS ORDERED: *HR* Heparin 10,000 UNIT/10 ML VIAL ONE (14:17)
[2018-09-07] MEDS ORDERED: Nitroglycerin 1,000 MCG/10 ML VIAL IV ONE (14:18)
[2018-09-07] MEDS ORDERED: ISOVUE-370 200 ML INFUS..BTL ONE (14:18)
[2018-09-07] MEDS ORDERED: 0.9 % Sodium Chloride 2,000 ML ONE (14:18)
[2018-09-07] MEDS ORDERED: *HR* Midazolam HCl 2 MG/2 ML VIAL ONE (14:31)
[2018-09-07] MEDS ORDERED: *HR* FentaNYL (PF) 100 MCG/2 ML VIAL ONE (14:31)
[2018-09-08 08:18] LABS: Basophils % 0.3 %; Eosinophils # 0.2 K/mcL (0.0-0.6); Eosinophils % 2.4 %; Hematocrit 33.7 % (37.5-50.1); Hemoglobin 10.7 g/dL (12.9-16.9); Immature Granulocytes % 0.6 % (0-4); Mean Corpuscular HGB Conc 31.8 g/dL (31.6-35.5); Mean Corpuscular Hemoglobin 29.6 pg (28.0-33.3); Mean Corpuscular Volume 93.1 fL (83.0-100.0); Mean Platelet Volume 11.2 fL (9.4-12.4); Monocytes # 0.4 K/mcL (0.0-1.3); Neutrophils # 5.5 K/mcL (1.6-8.9); Platelet Count 230 K/mcL (140-400); Red Blood Count 3.62 M/mcL (4.19-5.50); Red Cell Distribution Width 17.2 % (11.5-14.5); Segmented Neutrophils % 76.7 %; White Blood Count 7.2 K/mcL (4.3-11.1)
[2018-09-08 08:38] LABS: Calcium 8.9 mg/dL (8.6-10.3); Magnesium 1.5 mg/dL (1.6-2.6)
[2018-09-08] MEDS: Metoprolol XL (24 HR) Succ 25 MG TAB.ER.24H PO SCH ×2 (09:04→21:20)
[2018-09-08] MEDS: Mirabegron [Myrbetriq] 50 MG PO SCH (09:05)
[2018-09-08] MEDS: 0.9 % Sodium Chloride 1,000 ML IVC SCH (11:29)
[2018-09-08] MEDS: Apixaban 5 MG TABLET PO SCH (14:31)
[2018-09-09 04:56] LABS: Basophils % 0.2 %; Eosinophils # 0.2 K/mcL (0.0-0.6); Eosinophils % 3.3 %; Hematocrit 31.7 % (37.5-50.1); Hemoglobin 10.4 g/dL (12.9-16.9); Immature Granulocytes % 0.3 % (0-4); Mean Corpuscular HGB Conc 32.8 g/dL (31.6-35.5); Mean Corpuscular Hemoglobin 30.3 pg (28.0-33.3); Mean Corpuscular Volume 92.4 fL (83.0-100.0); Mean Platelet Volume 10.8 fL (9.4-12.4); Monocytes # 0.4 K/mcL (0.0-1.3); Monocytes % 6.9 %; Neutrophils # 4.2 K/mcL (1.6-8.9); Platelet Count 211 K/mcL (140-400); Red Blood Count 3.43 M/mcL (4.19-5.50); Segmented Neutrophils % 72.3 %; White Blood Count 5.8 K/mcL (4.3-11.1)
[2018-09-09 05:03] LABS: Calcium 8.7 mg/dL (8.6-10.3); Magnesium 1.5 mg/dL (1.6-2.6); Potassium 3.9 mEq/L (3.5-5.1)
[2018-09-09] MEDS: Metoprolol XL (24 HR) Succ 25 MG TAB.ER.24H PO SCH (09:06)
[2018-09-09] MEDS: Apixaban 5 MG TABLET PO SCH (09:07)
[2018-09-09] MEDS: Mirabegron [Myrbetriq] 50 MG PO SCH (09:43)
[2018-09-09 11:24] VITALS: BP 101/85
== END 2018-09-09 16:07 | disposition home or self-care (01) | DRG 725 ==
LOC: EMEROOARM 16:43 → 2ANU 16:43 → SUATTDRO 09-04 13:56 → 2NNU 09-05 19:47 → 2NENU 09-08 23:42
PROVIDERS: ADMIT Internal Medicine Nephrology; ATTEND Pharmacist